=== PATIENT | male | born 1955 | race Asian ===

== ENCOUNTER 2025-02-04 16:30 | Inpatient (IN) | payer MEDICARE, OTHER ==
[~2025-02-04] VITALS: Ht 165.1 cm; Wt 58.1 kg
[2025-02-04 00:45] VITALS: BP 177/97; TEMP 98.1; O2SAT 96
[2025-02-04 17:09] LABS: PLATELET COUNT (AUTO) 324 K/uL (152-348); RED BLOOD CELL COUNT(AUTO) 4.13 MIL/uL (4.06-5.63); RED CELL DISTRIBUTION WIDTH 13.9 % (12.1-16.2); WHITE BLOOD COUNT (AUTO) 7.7 K/uL (3.6-10.2)
[2025-02-04 17:18] LABS: CREATININE 0.8 mg/dL (0.6-1.3); SODIUM SERUM 142 mmol/L (136-145); UREA NITROGEN, BLOOD 24 mg/dL (7-18)
[2025-02-04 17:32] LABS: ASPARTATE AMINOTRANSFERASE 10 U/L (15-37); TOTAL PROTEIN, SERUM 7.5 g/dL (6.4-8.2)
[2025-02-04 18:18] LABS: *BILIRUBIN,URIN NEGATIVE (NEGATIVE); *BLOOD, URINE NEGATIVE (NEGATIVE); *CLARITY,URINE CLEAR (CLEAR); *COLOR,URINE YELLOW (YELLOW); *KETONES,URINE TRACE (NEGATIVE); *PROTEIN,URINE 1+ (NEGATIVE); *UROBILINOGEN,URINE 0.2 E.U./dl (NORMAL); LEUKOCYTE ESTERASE ,URINE NEGATIVE (NEGATIVE); NITRITE, URINE NEGATIVE (NEGATIVE); UGLUCOSE 2+ (NEGATIVE)
[2025-02-04 18:35] VITALS: BP 133/78
[2025-02-04 18:45] LABS: URINE AMORPHOUS PHOSPHATES MODERATE /HPF
[2025-02-04 18:48] LABS: *AMPHETAMINE, URINE NEGATIVE (NEGATIVE); *BARBITURATE, URINE NEGATIVE (NEGATIVE); *BENZODIAZEPINE, URINE NEGATIVE (NEGATIVE); *CANNABINOID, URINE NEGATIVE (NEGATIVE); *COCCAINE, URINE NEGATIVE (NEGATIVE); *OPIATE, URINE NEGATIVE (NEGATIVE); *PHENCYCLIDINE SCREEN,URINE NEGATIVE (NEGATIVE); FENTANYL, URINE NEGATIVE (NEGATIVE)
[2025-02-04] MEDS ORDERED: QUET25TA PO (23:20)
[2025-02-04] MEDS ORDERED: MAGN400O6 PO (23:20)
[2025-02-04] MEDS ORDERED: ACET-73 PO (23:20)
[2025-02-04] MEDS ORDERED: NA P133E RC (23:20)
[2025-02-04] MEDS ORDERED: FLUD0.1T PO (23:20)
[2025-02-04] MEDS ORDERED: CARB1TAB21 PO (23:20)
[2025-02-04] MEDS ORDERED: DOCU100C36 PO (23:20)
[2025-02-04] MEDS ORDERED: INSU100V7 SQ (23:20)
[2025-02-04] MEDS ORDERED: ACET-3117 PO (23:20)
[2025-02-04] MEDS ORDERED: FAMO20TA8 PO (23:20)
[2025-02-04] MEDS ORDERED: MELA3TAB52 PO (23:20)
[2025-02-04] MEDS ORDERED: INSU100C SUBCUT (23:20)
[2025-02-04] MEDS ORDERED: CRAN450T9 PO (23:20)
[2025-02-04] MEDS ORDERED: BISA10SU61 RC (23:20)
[2025-02-04] MEDS ORDERED: ATOR40TA PO (23:20)
[2025-02-04 23:45] VITALS: BP 177/91; TEMP 98.1; O2SAT 96
[2025-02-04] MEDS: BLOOD SUGAR DIAGNOSTIC 1 EACH STRIP VI ONE (23:45)
[2025-02-04] MEDS ORDERED: MAGNESIUM HYDROXIDE 30 ML LIQUID UDC PO PRN (23:45)
[2025-02-04] MEDS ORDERED: MAG HYDROX/AL HYDROX/SIMETH 30 ML LIQUID UDC PO PRN (23:45)
[2025-02-04] MEDS ORDERED: TEMAZEPAM 7.5 MG CAPSULE PO PRN ×2 (23:45)
[2025-02-04] MEDS ORDERED: LORAZEPAM 1 MG TABLET PO PRN (23:45)
[2025-02-05 08:03] VITALS: BP 165/82; TEMP 97.3; O2SAT 97
[2025-02-05] MEDS ORDERED: FLEET ENEMA 133 ML BOTTLE RC PRN (08:30)
[2025-02-05] MEDS ORDERED: BISACODYL 10 MG SUPP.RECT RC PRN (08:30)
[2025-02-05] MEDS ORDERED: MAGNESIUM HYDROXIDE 30 ML LIQUID UDC PO PRN (08:30)
[2025-02-05] MEDS ORDERED: DEXTROSE 50% 50 ML DISP.SYRIN IV PRN (08:30)
[2025-02-05] MEDS ORDERED: CRANBERRY FRUIT PO SCH (09:00)
[2025-02-05] MEDS: FAMOTIDINE 20 MG TABLET PO SCH (11:02)
[2025-02-05] MEDS: DOCUSATE SODIUM 100 MG CAPSULE PO SCH (11:02)
[2025-02-05] MEDS: CARBIDOPA/LEVODOPA 25-100MG TABLET PO SCH (11:03)
[2025-02-05] MEDS: FLUDROCORTISONE ACETATE 0.1 MG TABLET PO SCH (11:19)
[2025-02-05] MEDS: BLOOD SUGAR DIAGNOSTIC 1 EACH STRIP VI SCH (11:36)
[2025-02-05] MEDS: INSULIN REGULAR, HUMAN 1000 UNIT/10 ML VIAL SQ PRN (11:47)
[2025-02-05] MEDS ORDERED: INSULIN LISPRO 5 UNIT SUBCUT SCH (12:00)
[2025-02-05 19:59] VITALS: BP 115/60; TEMP 97.9; O2SAT 100
[2025-02-05] MEDS: ATORVASTATIN 40 MG TABLET PO SCH (20:29)
[2025-02-05] MEDS: INSULIN GLARGINE,HUM 300 UNITS/3 ML CARTRIDGE SQ SCH (20:37)
[2025-02-06 08:26] VITALS: BP 136/63; TEMP 98; O2SAT 98
[2025-02-06] MEDS: GLUCERNA SHAKE 237 ML CAN PO SCH (08:51)
[2025-02-06 15:23] VITALS: BP 128/57; TEMP 98.2; O2SAT 98
[2025-02-06 20:00] VITALS: BP 176/90; TEMP 98.3; O2SAT 100
[2025-02-06] MEDS: QUETIAPINE FUMARATE 25 MG TABLET PO SCH (20:18)
[2025-02-06 21:20] VITALS: BP 98/61; O2SAT 100
[2025-02-07 08:01] VITALS: BP 180/88; TEMP 98; O2SAT 96
[2025-02-07 12:07] VITALS: BP 159/77; O2SAT 97
[2025-02-07 15:30] VITALS: BP 90/45; TEMP 98; O2SAT 96
[2025-02-07 20:00] VITALS: BP 125/68; TEMP 98; O2SAT 96
[2025-02-08 07:50] VITALS: BP 184/99; TEMP 98; O2SAT 98
[2025-02-08] MEDS: ACETAMINOPHEN 325 MG TABLET PO PRN (09:51)
[2025-02-08 15:35] VITALS: BP 107/54; TEMP 98; O2SAT 99
[2025-02-08] MEDS: LORAZEPAM 1 MG TABLET PO PRN (19:49)
[2025-02-08 20:00] VITALS: BP 197/85; TEMP 97.7; O2SAT 100
[2025-02-08] MEDS: INSULIN REGULAR, HUMAN 300 UNITS/3 ML VIAL SQ PRN (20:22)
[2025-02-08 21:00] VITALS: BP 131/64
[2025-02-08] MEDS: QUETIAPINE FUMARATE 25 MG TABLET PO SCH (21:24)
[2025-02-08] MEDS: TEMAZEPAM 15 MG CAPSULE PO PRN (23:09)
[2025-02-09 08:58] VITALS: BP 139/80; TEMP 97.7; O2SAT 100
[2025-02-09 16:34] VITALS: BP 109/51; TEMP 97.7; O2SAT 100
[2025-02-09 19:54] VITALS: BP 98/52; TEMP 98.1; O2SAT 100
[2025-02-09] MEDS: QUETIAPINE FUMARATE 25 MG TABLET PO SCH (20:29)
[2025-02-10 08:58] VITALS: BP 161/95; TEMP 97.7; O2SAT 100
[2025-02-10 16:28] VITALS: BP 160/88; TEMP 97.7; O2SAT 100
[2025-02-10 20:07] VITALS: BP 129/69; TEMP 98.1; O2SAT 100
[2025-02-10] MEDS ORDERED: CARBIDOPA/LEVODOPA 25-100MG TABLET ONE (21:32)
[2025-02-11 08:54] VITALS: BP 137/69; TEMP 98.1; O2SAT 100
[2025-02-11 16:28] VITALS: BP 134/68; TEMP 98.1; O2SAT 100
[2025-02-11] MEDS: GLUCAGON,HUMAN RECOMBINANT 1 MG VIAL IM ONE (17:31)
[2025-02-11 19:57] VITALS: BP 134/66; TEMP 97.8; O2SAT 96
[2025-02-12 09:42] VITALS: BP 151/69; TEMP 97.5; O2SAT 98
[2025-02-12 18:22] VITALS: BP 163/85; TEMP 97.3; O2SAT 99
[2025-02-12 20:00] VITALS: BP 123/59; TEMP 98; O2SAT 98
[2025-02-12] MEDS: INSULIN GLARGINE,HUM 300 UNITS/3 ML CARTRIDGE SQ SCH (20:36)
[2025-02-13 09:26] VITALS: BP 169/79; TEMP 98; O2SAT 100
[2025-02-13 15:13] VITALS: BP 165/76; TEMP 98; O2SAT 99
[2025-02-13 20:00] VITALS: BP 137/64; TEMP 98; O2SAT 98
[2025-02-14 09:33] VITALS: BP 127/88; TEMP 98; O2SAT 100
[2025-02-14 16:47] VITALS: BP 187/95
== END 2025-02-14 20:02 | DRG 885 ==
LOC: ER 16:30 → GPS 21:45
PROVIDERS: ADMIT Psychiatry & Neurology Psychiatry; ATTEND Student in an Organized Health Care Education/Training Program
DX: F25.9 Schizoaffective disorder, unspecified (principal); F02.811 Dementia in other diseases classified elsewhere, unspecified severity, with agitation; E86.0 Dehydration; G20.A1 Parkinson's disease without dyskinesia, without mention of fluctuations; E78.5 Hyperlipidemia, unspecified; E11.9 Type 2 diabetes mellitus without complications; I95.1 Orthostatic hypotension; Z91.81 History of falling; E87.6 Hypokalemia; Z79.4 Long term (current) use of insulin; Z79.899 Other long term (current) drug therapy
CPT/HCPCS: 36415; 84443; 85025; J1610; J1815